=== PATIENT | female | born 1980 | race American Indian/Alaskan Native ===

== ENCOUNTER 2019-05-18 11:50 | Emergency (ER) | payer BC, MEDICAID ==
[2019-05-18] MEDS ORDERED: KEPPRA 1,000 MG/NS 0.75% 100ML 1,000 MG/100 ML BAG IV ONE (12:41)
--- NOTE | 2019-05-18 12:41 | Emergency Department Report ---
Blank Doc - Documentation Documentation: 38 y/o with history of seizures presents to ED S/P seizure yesterday at work a fter running out of mediations the last 3 days. C/o of chest pain and headache. Has neurologist and PCP This initial assessment/diagnostic orders/clinical plan/treatment(s) is/are subject to change based on patient's health status, clinical progression and re- assessment by fellow clinical providers in the ED. Further treatment and workup at subsequent clinical providers discretion. Patient/guardians urged not to elope from the ED as their condition may be serious if not clinically assessed and managed. Initial orders include: Plan Labs and keppra load
[2019-05-18 14:06] LABS: Basophils # (Auto) 0.1 K/mm3 (0.0-0.1); Basophils % (Auto) 0.7 % (0.0-1.8); Eosinophils # (Auto) 0.5 K/mm3 (0.0-0.4); Eosinophils % (Auto) 4.8 % (0.0-4.3); Hematocrit 37.7 % (30.3-42.9); Hemoglobin 12.2 gm/dl (10.1-14.3); Lymphocytes # (Auto) 3.2 K/mm3 (1.2-5.4); Lymphocytes % (Auto) 31.3 % (13.4-35.0); Mean Corpuscular HGB Conc 32 % (30-34); Mean Corpuscular Volume 78 fl (79-97); Monocytes # (Auto) 0.8 K/mm3 (0.0-0.8); Monocytes % (Auto) 7.9 % (0.0-7.3); Platelet Count 317 K/mm3 (140-440); Red Blood Count 4.83 M/mm3 (3.65-5.03); Red Cell Distribution Width 14.1 % (13.2-15.2)
[2019-05-18 14:12] LABS: Bilirubin,Urine Negative (Negative); Blood,Urine NEG (Negative); Color,Urine Yellow (Yellow); Protein,Urine <15 mg/dL mg/dL (Negative)
[2019-05-18 14:13] LABS: HCG Qualitative,Urine Negative (Negative)
[2019-05-18] MEDS ORDERED: LaMICtal PO ONE (14:14)
[2019-05-18 14:15] LABS: Mucus,Urine FEW /HPF
--- NOTE | 2019-05-18 14:37 | Emergency Department Report ---
HPI - General Chief Complaint: Seizure Time Seen by Provider: 05/18/19 12:38 - HPI HPI: 38-year-old female presents to the emergency department with complaint of having a seizure yesterday and having a continuous generalized headache since that time. Just complains of having some chest pain and shortness of breath that started earlier today. The chest pain is midsternal and does not radiate. She denies any fever, cough, back pain, diaphoresis. The patient takes Keppra 2000 mg twice daily, Motrin and Lamictal 100 mg twice daily, for her seizures but has been out of her medication the past 3 days. She has a neurologist, Dr. Barth. She has a primary care physician but has not seen them regarding her symptoms. Denies any tobacco or illicit drug use. No recent travel or sick contacts at home. ED Past Medical Hx - Past Medical History Previous Medical History?: Yes Hx Seizures: Yes Hx Psychiatric Treatment: Yes (anxiety) - Surgical History Past Surgical History?: Yes Additional Surgical History: breast reduction/ c section - Social History Smoking Status: Never Smoker Substance Use Type: None - Medications Home Medications: Home Medications Medication Instructions Recorded Confirmed Last Taken Type lamoTRIgine [LaMICtal] 100 mg PO BID #60 tab 05/18/19 Unknown Rx levETIRAcetam [Keppra TAB] 2,000 mg PO BID #60 tab 05/18/19 Unknown Rx traMADol [Ultram 50 MG tab] 50 mg PO Q6HR PRN #10 tablet 05/18/19 Unknown Rx ED Review of Systems ROS: Stated complaint: CHEST PAIN/SEIZURE YESTERDAY/PAIN Other details as noted in HPI Comment: All other systems reviewed and negative Constitutional: denies: chills, fever Eyes: denies: eye pain, vision change ENT: denies: ear pain, throat pain Respiratory: shortness of breath. denies: cough Cardiovascular: chest pain. denies: palpitations Gastrointestinal: denies: abdominal pain, vomiting Genitourinary: denies: dysuria, discharge Musculoskeletal: denies: back pain, arthralgia Skin: denies: rash, lesions Neurological: headache, other (seizure). denies: weakness, numbness, paresthesias Physical Exam - Physical Exam Vital Signs: Vital Signs 05/18/19 12:35 Temperature 98.3 F Pulse Rate 69 Respiratory 20 Rate Blood Pressure 128/74 O2 Sat by Pulse 100 Oximetry Physical Exam: GENERAL: The patient is well-developed well-nourished. HENT: Normocephalic. Atraumatic. Patient has moist mucous membranes. EYES: Extraocular motions are intact. Pupils equal reactive to light bilaterally. NECK: Supple. Trachea is midline. CHEST/LUNGS: Clear to auscultation. There is no respiratory distress noted. Chest pain is reproducible to palpation of the chest wall. No crepitus or deformity. HEART/CARDIOVASCULAR: Regular. There is no tachycardia. There is no murmur. ABDOMEN: Abdomen is soft, nontender. Patient has normal bowel sounds. There is no abdominal distention. SKIN: Skin is warm and dry. NEURO: The patient is awake, alert, and oriented. The patient is cooperative. The patient has no focal neurologic deficits. Normal speech. Cranial nerves II through XII grossly intact. MUSCULOSKELETAL: There is no tenderness or deformity. There is no evidence of acute injury. ED Course Vital Signs 05/18/19 12:35 Temperature 98.3 F Pulse Rate 69 Respiratory 20 Rate Blood Pressure 128/74 O2 Sat by Pulse 100 Oximetry ED Medical Decision Making - Lab Data Result diagrams: 05/18/19 13:35 05/18/19 13:35 - EKG Data -: EKG Interpreted by Me EKG shows normal: sinus rhythm, axis, intervals, QRS complexes (q waves to inferior leads), ST-T waves Rate: normal - EKG Data When compared to previous EKG there are: previous EKG unavailable Interpretation: other (Sinus, q waves to inferior leads. No STEMI) - Radiology Data Radiology results: report reviewed, image reviewed interpreted by me: Chest x-ray does not show any acute process. There are no pleural effusions, obvious pneumonia and there is no pneumothorax. CT head/brain wo con INDICATION / CLINICAL INFORMATION: 38 years Female; MAIN: headache OFF AND ON FOR SEVERAL WEEKS. TECHNIQUE: Routine CT head without contrast. All CT scans at this location are performed using CT dose reduction for ALARA by means of automated exposure control. COMPARISON: None. FINDINGS: BRAIN / INTRACRANIAL CONTENTS: No acute hemorrhage, mass effect, midline shift, hydrocephalus, or acute, large territorial infarct. No chronic infarct or focal atrophy. No significant white matter abnormality. CRANIOCERVICAL JUNCTION: No significant abnormality. ORBITS: No significant abnormality of visualized orbits. SINUSES / MASTOIDS: No significant abnormality the visualized paranasal sinuses or mastoid air cells. ADDITIONAL FINDINGS: Small areas of presumed gas are seen in the cavernous sinus regions-left greater than right. Minimal involvement seen in the infratemporal fossa on the left, as well as the left orbit. Would question IV placement on the left side. IMPRESSION: 1. No focal mass, hemorrhage, hydrocephalus, or acute, large territorial infarct. - Medical Decision Making This patient presents to the emergency with the complaint of having a seizure yesterday with a continuous headache since then. She also complains of some midsternal chest pain. The patient has been out of her seizure medication for the past 3 days which is most likely the reason for her current breakthrough seizure. Since being in the emergency department there has been no further seizure-like activity. She was loaded with some Keppra and lamotrigine. CT scan of the head did not show any bleed, shift, mass, ischemia, or any other acute process. On examination she does not have any focal, motor or sensory deficits in her cranial nerves are intact. She was given a dose of pain medication and upon reevaluation she is feeling greatly improved. She was seen ambulatory in the emergency department and both appears and feels stable. She has good follow-up with a neurologist. I checked with the patient multiple times and she is 100% positive that she is on 2 g of Keppra twice daily, despite the fact that it is a high dose of this medication. She has been given a refill of her seizure meds and a few pain pills for her residual mild headache. Regarding the chest pain, the patient has reproducible pain to palpation of the chest wall. EKG does not show any signs of ST elevation HI. She has a negative troponin and a negative d-dimer. She is low on the heart score and KAYLIN score. She will be given a referral for cardiology. She will return to the ER with any worsening of her symptoms or any acute distress. - Differential Diagnosis epilepsy, medication noncompliance, costochondritis, HI, PE Critical Care Time: No Critical care attestation.: If time is entered above; I have spent that time in minutes in the direct care of this critically ill patient, excluding procedure time. ED Disposition Clinical Impression: Seizure, Seizure secondary to subtherapeutic anticonvulsant medication, Atyp ical chest pain Disposition: DC-01 TO HOME OR SELFCARE Is pt being admited?: No Condition: Stable Instructions: Chest Pain (ED), Costochondritis (ED), Epilepsy (ED) Additional Instructions: Please follow-up with your primary care physician and neurologist. Return to the emergency Department with any worsening of your symptoms or any acute distress. Your chest pain appears to be more musculoskeletal than cardiac, however I am giving a referral for a local bowling ball mold assembler in case she would like to follow up regarding the chest pains. Take your seizure medications as p rescribed. Return to the emergency Department with any worsening of your symptoms or any acute distress. You have been prescribed a medication that is sedating and therefore should not be taken prior to driving, working, and responsible for children and in no way should be mixed with alcohol of any quantity. Prescriptions: levETIRAcetam [Keppra TAB] 2,000 mg PO BID #60 tab lamoTRIgine [LaMICtal] 100 mg PO BID #60 tab traMADol [Ultram 50 MG tab] 50 mg PO Q6HR PRN #10 tablet PRN Reason: Pain Referrals: PRIMARY CAREMD [Primary Care Provider] - 2-3 Days OLU LINDSAY MD [Staff Physician] - 2-3 Days Neurologist, Your [Other] - 2-3 Days Time of Disposition: 17:12
[2019-05-18] MEDS ORDERED: NACL 0.9% 1000 ML 1,000 ML IV ONE (14:38)
[2019-05-18] MEDS ORDERED: MORPHINE IV ONE (14:38)
--- NOTE | 2019-05-18 14:58 | XRay Report ---
CHEST 2 VIEWS INDICATION: Chest pain for one day. COMPARISON: None FINDINGS: Support devices: None. Heart: Within normal limits. Lungs/pleura: No acute air space or interstitial disease. No pneumothorax. Additional findings: None. IMPRESSION: Normal chest x-ray. Signer Name: Vikas Tijerina Jr, MD Signed: 05/18/2019 2:53 PM Workstation Name: [id number]
[2019-05-18 15:54] VITALS: BP 138/73
[2019-05-18 16:02] LABS: Alanine Aminotransferase 14 units/L (7-56); Albumin 3.8 g/dL (3.9-5); BUN/Creatinine Ratio 11; Blood Urea Nitrogen 9 mg/dL (7-17); Calcium 9.1 mg/dL (8.4-10.2); Hemolysis Index 51
--- NOTE | 2019-05-18 16:18 | Cat Scan Report ---
CT head/brain wo con INDICATION / CLINICAL INFORMATION: 38 years Female; MAIN: headache OFF AND ON FOR SEVERAL WEEKS. TECHNIQUE: Routine CT head without contrast. All CT scans at this location are performed using CT dos e reduction for ALARA by means of automated exposure control. COMPARISON: None. FINDINGS: BRAIN / INTRACRANIAL CONTENTS: No acute hemorrhage, mass effect, midline shift, hydrocephalus, or acu te, large territorial infarct. No chronic infarct or focal atrophy. No significant white matter abnor mality. CRANIOCERVICAL JUNCTION: No significant abnormality. ORBITS: No significant abnormality of visualized orbits. SINUSES / MASTOIDS: No significant abnormality the visualized paranasal sinuses or mastoid air cells. ADDITIONAL FINDINGS: Small areas of presumed gas are seen in the cavernous sinus regions-left greater than right. Minimal involvement seen in the infratemporal fossa on the left, as well as the left orb it. Would question IV placement on the left side. IMPRESSION: 1. No focal mass, hemorrhage, hydrocephalus, or acute, large territorial infarct. Signer Name: Yayo Aviles MD, III Signed: 05/18/2019 4:13 PM Workstation Name: [id number]
== END 2019-05-18 17:28 | disposition home or self-care (01) ==
LOC: ED 11:50
DX: R56.9 Unspecified convulsions (principal); R07.89 Other chest pain; F41.9 Anxiety disorder, unspecified
CPT/HCPCS: 36415; 70450; 71046; 80053; 81001; 81025; 84484; 85025; 85379; 93005; 93010; 96374; 96375; 99284; J1953; J2270; J7030; 80320; G0480

== ENCOUNTER 2019-07-21 11:34 | Emergency (ER) | payer SELFPAY ==
[2019-07-21] MEDS ORDERED: dexAMETHasone 4 MG/ML VIAL PO ONE (15:19)
[2019-07-21] MEDS ORDERED: PENICILLIN G BENZATHINE 1.2 MILLION UNIT/2 ML INJ IM STA (15:19)
--- NOTE | 2019-07-21 15:53 | Emergency Department Report ---
ED General Adult HPI - General Chief complaint: Upper Respiratory Infection Stated complaint: CP/COUGH/POSS STREP THROAT Time Seen by Provider: 07/21/19 14:54 Source: patient Mode of arrival: Ambulatory Limitations: No Limitations - Related Data Previous Rx's Medication Instructions Recorded Last Taken Type lamoTRIgine [LaMICtal] 100 mg PO BID #60 tab 05/18/19 Unknown Rx levETIRAcetam [Keppra TAB] 2,000 mg PO BID #60 tab 05/18/19 Unknown Rx traMADoL [Ultram 50 MG tab] 50 mg PO Q6HR PRN #10 tablet 05/18/19 Unknown Rx Chlorhexidine Mouthwash [Peridex] 15 ml MM BID #480 bottle 07/21/19 Unknown Rx Allergies Allergy/AdvReac Type Severity Reaction Status Date / Time No Known Allergies Allergy Verified 01/02/16 15:06 ED Review of Systems ROS: Stated complaint: CP/COUGH/POSS STREP THROAT Other details as noted in HPI Comment: All other systems reviewed and negative Constitutional: no symptoms reported Respiratory: no symptoms reported ED Past Medical Hx - Past Medical History Hx Seizures: Yes Hx Psychiatric Treatment: Yes (anxiety) - Surgical History Additional Surgical History: breast reduction/ c section - Social History Smoking Status: Never Smoker - Medications Home Medications: Home Medications Medication Instructions Recorded Confirmed Last Taken Type lamoTRIgine [LaMICtal] 100 mg PO BID #60 tab 05/18/19 Unknown Rx levETIRAcetam [Keppra TAB] 2,000 mg PO BID #60 tab 05/18/19 Unknown Rx traMADoL [Ultram 50 MG tab] 50 mg PO Q6HR PRN #10 tablet 05/18/19 Unknown Rx Chlorhexidine Mouthwash [Peridex] 15 ml MM BID #480 bottle 07/21/19 Unknown Rx ED Physical Exam - General Limitations: No Limitations General appearance: alert, in no apparent distress - Head Head exam: Present: atraumatic, normocephalic - Eye Eye exam: Present: normal appearance, PERRL, EOMI Pupils: Present: normal accommodation - ENT ENT exam: Present: normal exam, mucous membranes moist, other (findings were erythematous with some swelling scant exudate.) - Neck Neck exam: Present: normal inspection, tenderness, lymphadenopathy. Absent: meningismus - Respiratory Respiratory exam: Present: normal lung sounds bilaterally. Absent: respiratory distress, rales, chest wall tenderness, accessory muscle use - Cardiovascular Cardiovascular Exam: Present: regular rate, normal rhythm. Absent: systolic murmur, diastolic murmur, rubs, gallop - GI/Abdominal GI/Abdominal exam: Present: soft, normal bowel sounds - Extremities Exam Extremities exam: Present: normal inspection - Back Exam Back exam: Present: normal inspection - Neurological Exam Neurological exam: Present: alert, oriented X3 - Psychiatric Psychiatric exam: Present: normal affect, normal mood - Skin Skin exam: Present: warm, dry, intact, normal color. Absent: rash ED Course Vital Signs 07/21/19 11:38 Temperature 98.5 F Pulse Rate 108 H Respiratory 16 Rate Blood Pressure 152/82 O2 Sat by Pulse 96 Oximetry ED Medical Decision Making - Medical Decision Making No history of immunocompromise. Nontoxic appearance. Patient euvolemic with no trismus. No airway compromise. Able to tolerate PO. Given History and Exam I have low suspicion for this presentation being caused by OPERATOR CAVITY PUMP, RPA, Ludwigs, Epiglottitis or Bacterial Tracheitis, EBV, acute HIV, . Patient has been a very close contact with strep throat and the symptoms do results of that be included in the differential diagnosis we'll cover her for these reasons. Rx: Conservative care Disposition: Discharge home with prompt outpatient PCP follow up; return precautions discussed. Critical care attestation.: If time is entered above; I have spent that time in minutes in the direct care of this critically ill patient, excluding procedure time. ED Disposition Clinical Impression: Pharyngitis Disposition: DC-01 TO HOME OR SELFCARE Is pt being admited?: No Does the pt Need Aspirin: No Condition: Stable Instructions: Pharyngitis (ED) Prescriptions: Chlorhexidine Mouthwash [Peridex] 15 ml MM BID #480 bottle Referrals: AARON MUNOZ MD [Staff Physician] - 3-5 Days
[2019-07-21 16:37] VITALS: BP 144/78
== END 2019-07-21 16:35 | disposition home or self-care (01) ==
LOC: ED 11:34
DX: J02.9 Acute pharyngitis, unspecified (principal); F41.9 Anxiety disorder, unspecified; Z79.899 Other long term (current) drug therapy
CPT/HCPCS: 96372; 99282; J0561; J1100

== ENCOUNTER 2021-01-09 12:10 | Emergency (ER) | payer BC ==
[2021-01-09] MEDS ORDERED: SODIUM CHLORIDE 0.9% 1000 ML 1,000 ML IV ONE (14:51)
[2021-01-09] MEDS ORDERED: lamoTRIgine 100 MG TAB PO ONE (14:52)
[2021-01-09] MEDS ORDERED: levETIRAcetam 500 MG TAB PO ONE (14:52)
--- NOTE | 2021-01-09 14:56 | Emergency Department Report ---
HPI - General Chief Complaint: Seizure Time Seen by Provider: 01/09/21 14:37 - HPI HPI: This is a 40-year-old -[place] female presents to the emergency department via EMS from home with complaint of a seizure prior to presentation. Patient has a history of epilepsy for which she takes Vimpat 100 mg twice daily, lamotrigine 100 mg twice daily and Keppra 2 g twice daily. Patient says that she did not yet take her morning doses of her medications. She was at home when the seizure began. She does not know how long it lasted and says that she woke up on the floor having urinated on herself. She thinks that she did hit her head and has a right-sided headache. Patient has a primary care physician for follow-up. She also follows up with a Dr. Barth for neurology. She denies any tobacco or illicit drug use. No recent travel or sick contacts at home. She denies any fever, vision change, slurred speech, numbness or paresthesias, chest pain, roberto rtness of breath. The patient has not taken, no received anything, for symptoms prior to presentation today. Her headache is currently a 8 out of 10 in intensity. No known aggravating or alleviating factors. ED Past Medical Hx - Past Medical History Previous Medical History?: Yes Hx Seizures: Yes Hx Psychiatric Treatment: Yes (anxiety) - Surgical History Additional Surgical History: breast reduction/ c section - Social History Smoking Status: Current Some Day Smoker Substance Use Type: Marijuana - Medications Home Medications: Home Medications Medication Instructions Recorded Confirmed Last Taken Type Lacosamide [Vimpat] 100 mg PO BID 30 Days #60 01/08/20 01/09/21 01/08/21 Rx lamoTRIgine [LaMICtal] 100 mg PO BID #60 tablet 01/08/20 01/09/21 01/08/21 Rx levETIRAcetam [Keppra TAB] 2,000 mg PO BID #60 tab 01/08/20 01/09/21 01/08/21 Rx Famotidine [Pepcid] 20 mg PO QDAY PRN 01/09/21 01/09/21 3 Months Ago History ~10/09/20 ED Review of Systems ROS: Stated complaint: SEIZURE Other details as noted in HPI Comment: All other systems reviewed and negative Constitutional: denies: chills, fever Eyes: denies: eye pain, vision change ENT: denies: ear pain, throat pain Respiratory: denies: cough, shortness of breath Cardiovascular: denies: chest pain, palpitations Gastrointestinal: denies: abdominal pain, vomiting Genitourinary: denies: dysuria, discharge Musculoskeletal: denies: back pain, arthralgia Skin: denies: rash, lesions Neurological: headache, other (seizure). denies: weakness, numbness, paresthesias Physical Exam - Physical Exam Vital Signs: Vital Signs 01/09/21 01/09/21 01/09/21 13:44 13:46 14:00 Temperature 97.9 F Pulse Rate 74 Respiratory 18 Rate Blood Pressure 147/85 O2 Sat by Pulse 100 100 99 Oximetry 01/09/21 01/09/21 14:16 14:30 Temperature Pulse Rate 75 77 Respiratory 14 16 Rate Blood Pressure 156/87 135/72 O2 Sat by Pulse 100 100 Oximetry Physical Exam: GENERAL: The patient is well-developed well-nourished. HENT: Normocephalic. Atraumatic. Patient has moist mucous membranes. EYES: Extraocular motions are intact. Pupils equal reactive to light bilaterally. No nystagmus. NECK: Supple. Trachea is midline. CHEST/LUNGS: Clear to auscultation. There is no respiratory distress noted. HEART/CARDIOVASCULAR: Regular. There is no tachycardia. There is no murmur. ABDOMEN: Abdomen is soft, nontender. Patient has normal bowel sounds. Morbidly obese habitus. SKIN: Skin is warm and dry. NEURO: The patient is awake, alert, and oriented. The patient is cooperative. The patient has no focal neurologic deficits. Normal speech. Cranial nerves II through XII grossly intact. No pronator drift or dysmetria. No facial asymmetry. MUSCULOSKELETAL: There is no tenderness or deformity. There is no limitation range of motion. ED Course Vital Signs 01/09/21 01/09/21 01/09/21 13:44 13:46 14:00 Temperature 97.9 F Pulse Rate 74 Respiratory 18 Rate Blood Pressure 147/85 O2 Sat by Pulse 100 100 99 Oximetry 01/09/21 01/09/21 14:16 14:30 Temperature Pulse Rate 75 77 Respiratory 14 16 Rate Blood Pressure 156/87 135/72 O2 Sat by Pulse 100 100 Oximetry ED Medical Decision Making - Lab Data Result diagrams: 01/09/21 14:58 01/09/21 14:58 Lab Results 01/09/21 01/09/21 01/09/21 Range/Units 14:58 14:58 14:58 WBC 8.6 (4.5-11.0) K/mm3 RBC 4.71 (3.65-5.03) M/mm3 Hgb 12.1 (10.1-14.3) gm/dl Hct 36.2 (30.3-42.9) % MCV 77 L (79-97) fl MCH 26 L (28-32) pg MCHC 33 (30-34) % RDW 14.5 (13.2-15.2) % Plt Count 288 (140-440) K/mm3 Lymph % (Auto) 28.3 (13.4-35.0) % [place] % (Auto) 12.4 H (0.0-7.3) % Eos % (Auto) 3.5 (0.0-4.3) % Baso % (Auto) 0.8 (0.0-1.8) % Lymph # (Auto) 2.4 (1.2-5.4) K/mm3 [place] # (Auto) 1.1 H (0.0-0.8) K/mm3 Eos # (Auto) 0.3 (0.0-0.4) K/mm3 Baso # (Auto) 0.1 (0.0-0.1) K/mm3 Seg Neutrophils % 55.0 (40.0-70.0) % Seg Neutrophils # 4.8 (1.8-7.7) K/mm3 Sodium 138 (137-145) mmol/L Potassium 4.7 (3.6-5.0) mmol/L Chloride 102.6 (98-107) mmol/L Carbon Dioxide 28 (22-30) mmol/L Anion Gap 12 mmol/L BUN 8 (7-17) mg/dL Creatinine 0.8 (0.6-1.2) mg/dL Estimated GFR > 60 ml/min BUN/Creatinine Ratio 10 % Glucose 85 (65-100) mg/dL Calcium 8.7 (8.4-10.2) mg/dL Total Bilirubin 0.50 (0.1-1.2) mg/dL AST 14 (5-40) units/L ALT 10 (7-56) units/L Alkaline Phosphatase 60 (35-129) units/L Total Creatine Kinase 164 H (30-135) units/L Total Protein 7.0 (6.3-8.2) g/dL Albumin 3.8 L (3.9-5) g/dL Albumin/Globulin Ratio 1.2 % TSH (0.270-4.200) mlU/mL Urine Color (Yellow) Urine Turbidity (Clear) Urine pH (5.0-7.0) Ur Specific [place]ner (1.003-1.030) Urine Protein (Negative) mg/dL Urine Glucose (UA) (Negative) mg/dL Urine Ketones (Negative) mg/dL Urine Blood (Negative) Urine Nitrite (Negative) Urine Bilirubin (Negative) Urine Urobilinogen (<2.0) mg/dL Ur Leukocyte Esterase (Negative) Urine WBC (Auto) (0.0-6.0) /HPF Urine RBC (Auto) (0.0-6.0) /HPF U Epithel Cells (Auto) (0-13.0) /HPF Urine Bacteria (Auto) (Negative) /HPF Urine Mucus /HPF Urine Opiates Screen Urine Methadone Screen Ur Barbiturates Screen Ur Phencyclidine Scrn Ur Amphetamines Screen U Benzodiazepines Scrn Urine Cocaine Screen U Marijuana (THC) Screen Drugs of Abuse Note Plasma/Serum Alcohol < 0.01 (0-0.07) % 01/09/21 01/09/21 01/09/21 Range/Units 14:58 15:17 15:17 WBC (4.5-11.0) K/mm3 RBC (3.65-5.03) M/mm3 Hgb (10.1-14.3) gm/dl Hct (30.3-42.9) % MCV (79-97) fl MCH (28-32) pg MCHC (30-34) % RDW (13.2-15.2) % Plt Count (140-440) K/mm3 Lymph % (Auto) (13.4-35.0) % [place] % (Auto) (0.0-7.3) % Eos % (Auto) (0.0-4.3) % Baso % (Auto) (0.0-1.8) % Lymph # (Auto) (1.2-5.4) K/mm3 [place] # (Auto) (0.0-0.8) K/mm3 Eos # (Auto) (0.0-0.4) K/mm3 Baso # (Auto) (0.0-0.1) K/mm3 Seg Neutrophils % (40.0-70.0) % Seg Neutrophils # (1.8-7.7) K/mm3 Sodium (137-145) mmol/L Potassium (3.6-5.0) mmol/L Chloride (98-107) mmol/L Carbon Dioxide (22-30) mmol/L Anion Gap mmol/L BUN (7-17) mg/dL Creatinine (0.6-1.2) mg/dL Estimated GFR ml/min BUN/Creatinine Ratio % Glucose (65-100) mg/dL Calcium (8.4-10.2) mg/dL Total Bilirubin (0.1-1.2) mg/dL AST (5-40) units/L ALT (7-56) units/L Alkaline Phosphatase (35-129) units/L Total Creatine Kinase (30-135) units/L Total Protein (6.3-8.2) g/dL Albumin (3.9-5) g/dL Albumin/Globulin Ratio % TSH 1.960 (0.270-4.200) mlU/mL Urine Color Yellow (Yellow) Urine Turbidity Clear (Clear) Urine pH 6.0 (5.0-7.0) Ur Specific [place] 1.012 (1.003-1.030) Urine Protein <15 mg/dl (Negative) mg/dL Urine Glucose (UA) Neg (Negative) mg/dL Urine Ketones Neg (Negative) mg/dL Urine Blood Neg (Negative) Urine Nitrite Neg (Negative) Urine Bilirubin Neg (Negative) Urine Urobilinogen < 2.0 (<2.0) mg/dL Ur Leukocyte Esterase Neg (Negative) Urine WBC (Auto) < 1.0 (0.0-6.0) /HPF Urine RBC (Auto) 1.0 (0.0-6.0) /HPF U Epithel Cells (Auto) 2.0 (0-13.0) /HPF Urine Bacteria (Auto) 1+ (Negative) /HPF Urine Mucus Few /HPF Urine Opiates Screen Negative Urine Methadone Screen Negative Ur Barbiturates Screen Negative Ur Phencyclidine Scrn Negative Ur Amphetamines Screen Negative U Benzodiazepines Scrn Negative Urine Cocaine Screen Negative U Marijuana (THC) Screen Positive Drugs of Abuse Note Disclamer Plasma/Serum Alcohol (0-0.07) % - EKG Data -: EKG Interpreted by Me EKG shows normal: sinus rhythm, axis, intervals, QRS complexes, ST-T waves Rate: normal - EKG Data When compared to previous EKG there are: previous EKG unavailable Interpretation: normal EKG - Radiology Data Radiology results: report reviewed CT head/brain wo con INDICATION: Seizure, headache. TECHNIQUE: All CT scans at this location are performed using CT dose reduction for ALARA by means of aut omated exposure control. COMPARISON: Head CT on 05/18/2019 FINDINGS: There is no evidence of hemorrhage, hydrocephalus, brain edema, or mass effect/mass lesion. There is overall normal brain formation and brain volume for the patient's age. Ventricular and cisternal/sulcal size is normal for age. The included paranasal sinuses and mastoid air cells are clear. The orbits appear unremarkable. IMPRES JOSE ALEJANDRO: 1. No acute intracranial abnormality. - Medical Decision Making This patient presents to the emergency department after having either a seizure or syncopal episode just prior to presentation. The patient does have a history of epilepsy and has been compliant with her medications other than her morning dose today. On examination the patient is awake, alert, oriented. She does not have any focal, motor or sensory deficits and her cranial nerves are intact. Since the patient did have a seizure and complains of right-sided headache, a CT scan of the head without contrast was completed that did not show any large vessel occlusion, hemorrhage, hydrocephalus, edema, mass, or any other acute process. She was given a dose of her lamotrigine, Vimpat, Keppra, and was given a dose of IV analgesia for headache. Labs have been mostly unremarkable occluding CBC, metabolic panel, thyroid function, CK level, and UDS only positive for marijuana. She has been reevaluated multiple times over multiple hours and there has been no return of any seizure-like activity, syncopal episodes, or any neurological deficits. The patient has good outpatient follow-up with both primary care and neurology. For all these reason she appears safe for discharge home at this time. She understands that she cannot drive. She understands to stay away from alcohol, illicit drugs, excessive caffeine. She will return to the closest emergency department with any further seizure-like activity, worsening of her symptoms, or with any acute distress. Critical Care Time: No Critical care attestation.: If time is entered above; I have spent that time in minutes in the direct care of this critically ill patient, excluding procedure time. ED Disposition Clinical Impression: Seizure Hypertension Qualifiers: Hypertension type: essential hypertension Qualified Code(s): I10 - Essential (primary) hypertension Disposition: TO HOME OR SELFCARE Is pt being admited?: No Condition: Stable Instructions: Seizure, Adult, Hypertension, Adult, Hypertension (ED) Additional Instructions: Please follow-up with your primary care physician and neurologist in the next few days. Take all of your medications as prescribed. Avoid any alcohol use, illicit drug use, excessive caffeine use. Please try and get 8 hours of un-interrupted sleep at night. Because of your seizures, you are not allowed to drive or operate any vehicles for at least 6 months or until cleared by your neurologist. Return to the emergency department with any worsening of your symptoms, new or concerning symptoms not addressed during this current emergency department visit, or with any acute distress. Referrals: PRIMARY MD VINCENZO [Primary Care Provider] - 2-3 Days Time of Disposition: 17:58
[2021-01-09] MEDS ORDERED: LACOSAMIDE 100 MG in SODIUM CHLORIDE 0.9% 100 ML IV ONE (15:00)
[2021-01-09] MEDS ORDERED: MORPHINE 4 MG/1 ML INJ IV ONE ×2 (15:08→17:49)
[2021-01-09 15:10] LABS: Basophils # (Auto) 0.1 K/mm3 (0.0-0.1); Basophils % (Auto) 0.8 % (0.0-1.8); Eosinophils # (Auto) 0.3 K/mm3 (0.0-0.4); Eosinophils % (Auto) 3.5 % (0.0-4.3); Hematocrit 36.2 % (30.3-42.9); Hemoglobin 12.1 gm/dl (10.1-14.3); Lymphocytes # (Auto) 2.4 K/mm3 (1.2-5.4); Lymphocytes % (Auto) 28.3 % (13.4-35.0); Mean Corpuscular HGB Conc 33 % (30-34); Mean Corpuscular Volume 77 fl (79-97); Monocytes # (Auto) 1.1 K/mm3 (0.0-0.8); Monocytes % (Auto) 12.4 % (0.0-7.3); Platelet Count 288 K/mm3 (140-440); Red Blood Count 4.71 M/mm3 (3.65-5.03); Red Cell Distribution Width 14.5 % (13.2-15.2)
[2021-01-09 15:26] LABS: Alanine Aminotransferase 10 units/L (7-56); Albumin 3.8 g/dL (3.9-5); BUN/Creatinine Ratio 10; Blood Urea Nitrogen 8 mg/dL (7-17); Calcium 8.7 mg/dL (8.4-10.2); Hemolysis Index 24
[2021-01-09 16:00] LABS: Amphetamine Screen,Urine Negative; Bacteria,Urine 1+ /HPF (Negative); Benzodiazepines Screen,Urine Negative; Bilirubin,Urine NEG (Negative); Blood,Urine NEG (Negative); Cocaine Screen,Urine Negative; Color,Urine Yellow (Yellow); Methadone Screen,Urine Negative; Mucus,Urine FEW /HPF; Opiate Screen,Urine Negative; Protein,Urine <15 mg/dL mg/dL (Negative); Urobilinogen,Urine < 2.0 mg/dL (<2.0); WBC,Urine < 1.0 /HPF (0.0-6.0)
[2021-01-09 16:10] LABS: Cannabinoid Screen,Urine Positive
--- NOTE | 2021-01-09 17:14 | Cat Scan Report ---
CT head/brain wo con INDICATION: Seizure, headache. TECHNIQUE: All CT scans at this location are performed using CT dose reduction for ALARA by means of automated e xposure control. COMPARISON: Head CT on 05/18/2019 FINDINGS: There is no evidence of hemorrhage, hydrocephalus, brain edema, or mass effect/mass lesion. There is overall normal brain formation and brain volume for the patient's age. Ventricular and cisternal/sulc al size is normal for age. The included paranasal sinuses and mastoid air cells are clear. The orbits appear unremarkable. IMPRESSION: 1. No acute intracranial abnormality. Signer Name: Chau Pandey MD Signed: 01/09/2021 5:10 PM Workstation Name: [id number]
[2021-01-09 18:38] VITALS: BP 155/85
--- NOTE | 2021-01-15 09:38 | Electrocardiograph Report ---
[facility] Test Date: 2021-01-09 Test Time: 15:54:27 Pat Name: DREAD AVILEZ Department: ED Room: Gender: F Chart Snatcher: VISHAL : 1980 Requested By: MELITON RICHMOND Order Number: [id number] Reading MD: Kamlesh Blair Measurements Intervals [place] Rate: 68 P: 50 [place]: 166 QRS: 38 QRSD: 88 T: 31 QT: 389 QTc: 413 Interpretive Statements Sinus rhythm No previous ECG available for comparison Electronically Signed On 01-15-2021 9:37:45 EDT by Kamlesh Blair
== END 2021-01-09 18:38 | disposition home or self-care (01) ==
LOC: ED 12:10
DX: R56.9 Unspecified convulsions (principal); I10 Essential (primary) hypertension; F41.9 Anxiety disorder, unspecified; F17.200 Nicotine dependence, unspecified, uncomplicated; F12.10 Cannabis abuse, uncomplicated; Z98.890 Other specified postprocedural states; Z79.899 Other long term (current) drug therapy
CPT/HCPCS: 36415; 70450; 80053; 80307; 81001; 82550; 84443; 85025; 96365; 96375; 96376; 99285; C9254; J2270; J7030; 80320; 93005; G0480

== ENCOUNTER 2021-01-15 15:55 | Emergency (ER) | payer BC ==
--- NOTE | 2021-01-15 16:10 | Event Note ---
ED Screening Note ED Screening Note: here Tuesday for sz she reports she is taking her meds and that she has seen her pcp and neuro MD since ER and they have changed nothing she comes in today with a headache, dizziness and reports her bp is high ambulatory no focal deficit no cp no sob pmh sz obese bp mildly inc in triage This initial assessment/diagnostic orders/clinical plan/treatment(s) is/are subject to change based on patients health status, clinical progression and re- assessment by fellow clinical providers in the ED. Further treatment and workup at subsequent clinical providers discretion. Patient/guardian urged not to elope from the ED as their condition may be serious if not clinically assessed and managed. Initial orders include: labs ua ekg
[2021-01-15 16:47] LABS: Basophils # (Auto) 0.1 K/mm3 (0.0-0.1); Basophils % (Auto) 0.6 % (0.0-1.8); Eosinophils # (Auto) 0.2 K/mm3 (0.0-0.4); Eosinophils % (Auto) 1.6 % (0.0-4.3); Hematocrit 38.6 % (30.3-42.9); Hemoglobin 12.2 gm/dl (10.1-14.3); Lymphocytes # (Auto) 3.9 K/mm3 (1.2-5.4); Lymphocytes % (Auto) 40.2 % (13.4-35.0); Mean Corpuscular HGB Conc 32 % (30-34); Mean Corpuscular Volume 77 fl (79-97); Monocytes # (Auto) 0.9 K/mm3 (0.0-0.8); Monocytes % (Auto) 9.7 % (0.0-7.3); Platelet Count 355 K/mm3 (140-440); Red Blood Count 4.99 M/mm3 (3.65-5.03); Red Cell Distribution Width 14.5 % (13.2-15.2)
[2021-01-15 16:53] LABS: Creatine Kinase MB 1.2 ng/mL (0.0-4.0)
[2021-01-15 16:55] LABS: Alanine Aminotransferase 11 units/L (7-56); Albumin 3.9 g/dL (3.9-5); Blood Urea Nitrogen 9 mg/dL (7-17); Calcium 9.4 mg/dL (8.4-10.2); Hemolysis Index 3
[2021-01-15 17:01] LABS: BUN/Creatinine Ratio 13
--- NOTE | 2021-01-15 17:35 | Emergency Department Report ---
- General Chief complaint: Dizziness Stated complaint: DIZZY Time Seen by Provider: 01/15/21 16:08 Source: patient Mode of arrival: Stretcher Limitations: No Limitations - History of Present Illness Initial comments: 40-year-old female with history of epilepsy on multiple antiepileptics presents complaining of persistent and worsening headache since January 09. The patient was seen in our emergency room on January 09 for breakthrough seizure. At that time she was evaluated with a full set of labs and CT of the head which were normal. She was discharged home and encouraged to follow-up with her doctor. Of note, my interaction with the patient began after she was placed in a room and the nurse came to get me saying that the patient was having an episode where she was drooling and was not responding to him and he was concerned that she might be having a seizure. When I entered the room, the patient was slightly somnolent but able to answer my questions. She stated that she started progressive headache since her last seizure on January 09. She describes the headache as pressure-like and centered in the back of her head as well as the bilateral temples. In addition she says she has felt dizzy as in lightheaded. She denies room spinning dizziness. She denies fever/chills, vision change, neck pain/stiffness, chest pain, shortness of breath, abdominal pain, nausea/ vomiting, focal weakness, sensory changes, or any other associated symptoms. However, details of the HPI may be limited due to the patient's possible post ictal state given that she was somnolent and slightly confused during the interview and was not that way when she first arrived. - Related Data Home Medications Medication Instructions Recorded Confirmed Last Taken Famotidine [Pepcid] 20 mg PO QDAY PRN 01/09/21 01/09/21 3 Months Ago ~10/09/20 Previous Rx's Medication Instructions Recorded Last Taken Type lamoTRIgine [LaMICtal] 100 mg PO BID #60 tablet 01/08/20 01/08/21 Rx levETIRAcetam [Keppra TAB] 2,000 mg PO BID #60 tab 01/08/20 01/08/21 Rx Lacosamide [Vimpat] 150 mg PO BID #60 tablet 01/15/21 Unknown Rx Allergies Allergy/AdvReac Type Severity Reaction Status Date / Time No Known Allergies Allergy Verified 01/09/21 14:39 ED Review of Systems ROS: Stated complaint: DIZZY Other details as noted in HPI Constitutional: denies: chills, fever Eyes: denies: eye pain, vision change ENT: denies: throat pain, congestion Respiratory: denies: cough, shortness of breath Cardiovascular: denies: chest pain, palpitations Gastrointestinal: denies: abdominal pain, nausea, vomiting Genitourinary: denies: dysuria, frequency Musculoskeletal: denies: back pain, myalgia Skin: denies: rash Neurological: headache. denies: weakness, numbness, vertigo ED Past Medical Hx - Past Medical History Previous Medical History?: Yes Hx Seizures: Yes Hx Psychiatric Treatment: Yes (anxiety) - Surgical History Past Surgical History?: Yes Additional Surgical History: breast reduction/ c section - Social History Smoking Status: Current Some Day Smoker Substance Use Type: Marijuana - Medications Home Medications: Home Medications Medication Instructions Recorded Confirmed Last Taken Type lamoTRIgine [LaMICtal] 100 mg PO BID #60 tablet 01/08/20 01/09/21 01/08/21 Rx levETIRAcetam [Keppra TAB] 2,000 mg PO BID #60 tab 01/08/20 01/09/21 01/08/21 Rx Famotidine [Pepcid] 20 mg PO QDAY PRN 01/09/21 01/09/21 3 Months Ago History ~10/09/20 Lacosamide [Vimpat] 150 mg PO BID #60 tablet 01/15/21 Unknown Rx ED Physical Exam - General Limitations: No Limitations - Head Head exam: Present: atraumatic - Eye Eye exam: Present: PERRL, EOMI Pupils: Present: normal accommodation - ENT ENT exam: Present: normal exam, mucous membranes moist - Neck Neck exam: Present: normal inspection, full ROM. Absent: tenderness, meningismus - Respiratory Respiratory exam: Present: normal lung sounds bilaterally. Absent: respiratory distress, wheezes, rales - Cardiovascular Cardiovascular Exam: Present: regular rate, normal rhythm - GI/Abdominal GI/Abdominal exam: Present: soft. Absent: distended, tenderness - Extremities Exam Extremities exam: Present: normal inspection. Absent: tenderness - Back Exam Back exam: Present: normal inspection, full ROM, other (No mid-spinal tenderness of the C/T/L spine). Absent: tenderness - Assessment Assessment Interval: Baseline - Level of Consciousness 1a. Level of Consciousness: alert/keenly responsive - LOC Questions 1b. LOC Questions: answers both correctly - LOC Command 1c. LOC Commands: performs tasks correctly - Best Gaze 2. Best Gaze: normal - Visual 3. Visual: no visual loss - Facial Palsy 4. Facial Palsy: partial paralysis - Motor Arm 5a. Motor Arm Left: no drift 5b. Motor Arm Right: drift - Motor Leg 6a. Motor Leg Left: no drift 6b. Motor Leg Right: drift - Limb Ataxia 7. Limb Ataxia: absent - Sensory 8. Sensory: mild/moderate sensory loss - Best Language 9. Best Language: no aphasia - Dysarthria 10. Dysarthria: normal - Extinction and Inattention 11. Extinction/Inattention: no abnormality - Scoring Total Score: 5 Stroke Severity: Moderate Stroke ED Course Vital Signs 01/15/21 01/15/21 01/15/21 16:06 17:06 17:56 Temperature 98.2 F Pulse Rate 80 94 H Respiratory 20 19 20 Rate Blood Pressure 149/97 Blood Pressure 160/106 [Left] O2 Sat by Pulse 98 99 Oximetry 01/15/21 18:33 Temperature Pulse Rate 84 Respiratory 18 Rate Blood Pressure Blood Pressure 132/69 [Left] O2 Sat by Pulse 100 Oximetry ED Medical Decision Making - Lab Data Result diagrams: 01/15/21 17:30 01/15/21 16:15 - EKG Data -: EKG Interpreted by [place] - EKG Data 01/15/21 18:41 Normal sinus rhythm. Normal axis. Normal intervals. No ectopy. No significant ST segment or T wave abnormalities. - Radiology Data NONENHANCED CT SCAN OF THE BRAIN: INDICATION: CODE STROKE [id number] RT SIDE WEAKNESS,. TECHNIQUE: Routine CT head without contrast. Sagittal and coronal reformatted images were obtained. All CT scans at this location are performed using CT dose reduction for ALARA by means of automated exposure control. COMPARISON: None. FINDINGS: BRAIN / INTRACRANIAL CONTENTS: Hemorrhage: No intracranial hemorrhage; no subarachnoid hemorrhage Stroke mimics: No subdural or epidural hematoma or space taking lesion Acute/subacute territorial infarction: Alvarez-white matter interface: No blurring; normal Insular cortex: Normal Basal ganglia: Normal Wedge shaped parenchymal low density area: Not present Cortical sulci: Not effaced Lacunar infarctions: No acute/subacute lacunae Vasculopathy: Dense middle cerebral artery sign: Not present Internal carotid artery terminus: Normal Basilar artery:Normal Middle cerebral artery branches in the sylvian fissure (Dot sign): Normal Calcified embolus: Not present ASPECT score: 10 Chronic lesions: None White matter: Periventricular a nd deep hemispheric white matter are normal Craniocervical junction:No significant abnormality Orbits: No significant abnormality Paranasal sinuses/mastoids:No significant abnormality Additional findings: None IMPRESSION: No intracerebral hemorrhage or stroke mimics; no CT findings to suggest acute/subacute territorial ischemia This exam was performed as part of a code stroke protocol. The exam was completed at [facility] on 01/15/2021 4:40 PM. The exam was reviewed at 4:43 PM and ER physician was notified at 4:46 PM. - Medical Decision Making 40-year-old female with history of seizure disorder on antiepileptics presenting due to persistent and worsening headache since her last known seizure on January 09. Also reports lightheadedness. The beginning of the patient encounter began with a nurse came to get me saying that he found the patient drooling and unresponsive in the room and thought she may be having a seizure. When I entered the room the patient was somnolent but arousable and able to answer my questions. She did appear to be postictal. Her neck was supple and had full range of motion. However, it quickly became apparent that she was hemiparetic with extreme weakness of her right upper and right lower extremities as well as right-sided facial droop without involvement of the upper part of the face. In addition, she was noted to have decreased sensation to touch and pain on the right side. NIHSS is 5. For this reason stroke alert was initiated with full set of labs and Noncon CT of the head as well as CT angio of the head and neck. I spoke with the PAJohanna he stated that when the patient first came in was screened at 1610 she did not have any of these neurologic deficits therefore last known normal time is 1610 today. At 5:45 PM I spoke over the phone with Dr. Sharp of teleneurology. He has seen and assessed the patient. He feels that the patient's current symptoms/deficits are likely related to her having a seizure while here in the emergency department, even with her sensory involvement. He reviewed the CT of the head and it shows no evidence of bleeding or acute/subacute ischemia (co nfirmed by radiologist). He does not recommend aspirin or admission but instead recommends administration of 200 mg of IV Vimpat now. He says that if the patient feels better and her deficits resolve, she should be discharged home with an increased Vimpat dose of 150 mg twice daily in addition to her Keppra and Lamictal. On repeat assessment at 5:50 PM, the patient's symptoms are improved, and she has 4 out of 5 strength on the right. On repeat assessment again at 6:30 PM, the patient's neurologic deficits have entirely resolved. She has no unilateral weakness or numbness. She does still have a headache for which we will administer Toradol and IV fluids in addition to the Vimpat as recommended by the teleneurologist. Labs have resulted and reveal no significant leukocytosis or anemia. There are no significant electrolyte abnormalities and kidney function is normal. The remainder of the labs are unremarkable. On repeat assessment again at 8:10 PM, the patient is resting comfortably in the bed. She reports that she feels much better. Her headache is improved greatly. She has no neurologic deficits. She wants to go home. I discussed with her the medication changes recommended by the teleneurologist, namely increasing the dose of her Vimpat to 150 mg twice a day. She will follow up with her neurologist and regular doctor within the next 24 hours. She will return to the emergency department should she develop significantly worsening pain, new neurologic deficits, or any other new concerns. All this was discussed with the patient who expressed understanding agreement with the plan of care. Critical Care Time: Yes (35 mins) Critical care time in (mins) excluding proc time.: 35 Critical care attestation.: If time is entered above; I have spent that time in minutes in the direct care of this critically ill patient, excluding procedure time. Critical care time was spent in the evaluation/assessment and management of critical seizure with neurologic symptoms requiring stroke alert and coordination between specialists and frequent reassessment and close monitoring ED Disposition Clinical Impression: Seizure, Headache, Rk's paralysis Disposition: DC-01 TO HOME OR SELFCARE Is pt being admited?: No Condition: Stable Instructions: Non-Epileptic Seizures, Adult, Seizure, Adult Additional Instructions: Please return to the emergency department should you develop greatly worsening symptoms, fever, new neurologic symptoms, or any other new concerns. Follow-up with your neurologist within the next 24 hours. Please schedule a follow-up appointment with your regular doctor as well. Prescriptions: Lacosamide [Vimpat] 150 mg PO BID #60 tablet Referrals: PRIMARY CARE, [Primary Care Provider] - 3-5 Days
--- NOTE | 2021-01-15 17:45 | Consultation ---
Medications and Allergies Allergies Allergy/AdvReac Type Severity Reaction Status Date / Time No Known Allergies Allergy Verified 01/09/21 14:39 Home Medications Medication Instructions Recorded Confirmed Last Taken Type Lacosamide [Vimpat] 100 mg PO BID 30 Days #60 01/08/20 01/09/21 01/08/21 Rx lamoTRIgine [LaMICtal] 100 mg PO BID #60 tablet 01/08/20 01/09/21 01/08/21 Rx levETIRAcetam [Keppra TAB] 2,000 mg PO BID #60 tab 01/08/20 01/09/21 01/08/21 Rx Famotidine [Pepcid] 20 mg PO QDAY PRN 01/09/21 01/09/21 3 Months Ago History ~10/09/20 Physical Examination - Vital Signs Vital Signs: Vital Signs Temp Pulse Resp BP Pulse Ox 98.2 F 80 20 149/97 98 01/15/21 16:06 01/15/21 16:06 01/15/21 16:06 01/15/21 16:06 01/15/21 16:06 Results - Laboratory Findings CBC and BMP: 01/15/21 16:15 01/15/21 16:15 Abnormal Lab Findings: Abnormal Labs 01/15/21 16:15 MCV 77 L MCH 25 L Lymph % (Auto) 40.2 H [place] % (Auto) 9.7 H [place] # (Auto) 0.9 H Assessment and Plan [facility] Consult Note # Demographics Consult Type: Acute Stroke Level 1 (0-4.5 hrs) Patient Location: Emergency Room First Name: Alicia Last Name: Bassam Date of : 1980 Age: 40 Gender: Female Time of Initial Page (Eastern Time): 01/15/2021, 17:29 Time of Return Call ( Time): 01/15/2021, 17:30 # HPI History: 40F with possible seizure, foaming at mouth, not responsive per RN. Initially in ED due to hypertension and headache reportedly. Last well seen here for seizure reportedly. [place] to have right weakness and so stroke alert activated. Patient reports feeling tired. Does feel similar to after seizures. Denies missed doses medication. # Scores Time of exam and NIHSS ( Time): 01/15/2021, 17:39 Level of Consciousness 1a: [1] = Not alert; but arousable by minor stim LOC Questions 1b: [0] = Answers both questions correctly LOC Commands 1c: [0] = Performs both tasks correctly Best Gaze 2: [0] = Normal Visual 3: [0] = No visual loss Facial Palsy 4: [0] = Normal symmetrical movements Motor Arm Left 5a: [0] = No drift Motor Arm Right 5b: [0] = No drift Motor Leg Left 6a: [0] = No drift Motor Leg Right 6b: [0] = No drift Limb Ataxia 7: [0] = Absent Sensory 8: [1] = Qzoy-pw-iilsarmc sensory loss Best Language 9: [0] = No aphasia Dysarthria 10: [0] = Normal Extinction and Inattention 11: [0] = No abnormality NIHSS Total: 2 # PMH-FH-SH Past Medical History: seizure Medications: vimpat, lamotrigine, keppra # Data Time Head CT personally read by me (Eastern Time): 01/15/2021, 17:[address]: no bleed preliminarily reviewed by me, please refer to radiology read for official reading # Assessment Impression: Altered Mental Status Seizure with prior recent seizure. The right side weakness could be due to post-ictal "Rk's" paralysis, r/o other. # Plan Thrombolytic/Intervention: NOT IV Thrombolytic or IA Intervention Thrombolytic Exclusion: risk > benefit with available data Intraarterial Exclusion: clinically not consistent with stroke Blood Pressure Management: nicardipine labetolol Target Blood Pressure: SBP < 160 Other: seizure precautions I have discussed my recommendations with the referring provider Additional Recommendations: Continue baseline antiepileptic medications, but increase vimpat to 150mg PO BID. Could give vimpat 200mg IV once now. Outpatient neurology follow-up. If recurrent event patient should be observed and in that case would obtain EEG. Disposition: observation # Logistics Telemedicine: Interactive 2 way audio and visual telecommunication technology was utilized during this visit
--- NOTE | 2021-01-15 17:52 | Cat Scan Report ---
NONENHANCED CT SCAN OF THE BRAIN: INDICATION: CODE STROKE [id number] RT SIDE WEAKNESS,. TECHNIQUE: Routine CT head without contrast. Sagittal and coronal reformatted images were obtained. A ll CT scans at this location are performed using CT dose reduction for ALARA by means of automated ex posure control. COMPARISON: None. FINDINGS: BRAIN / INTRACRANIAL CONTENTS: Hemorrhage: No intracranial hemorrhage; no subarachnoid hemorrhage Stroke mimics: No subdural or epidural hematoma or space taking lesion Acute/subacute territorial infarction: Alvarez-white matter interface: No blurring; normal Insular cortex: Normal Basal ganglia: Normal Wedge shaped parenchymal low density area: Not present Cortical sulci: Not effaced Lacunar infarctions: No acute/subacute lacunae Vasculopathy: Dense middle cerebral artery sign: Not present Internal carotid artery terminus: Normal Basilar artery:Normal Middle cerebral artery branches in the sylvian fissure (Dot sign): Normal Calcified embolus: Not present ASPECT score: 10 Chronic lesions: None White matter: Periventricular and deep hemispheric white matter are normal Craniocervical junction:No significant abnormality Orbits: No significant abnormality Paranasal sinuses/mastoids:No significant abnormality Additional findings: None IMPRESSION: No intracerebral hemorrhage or stroke mimics; no CT findings to suggest acute/subacute territorial is chemia This exam was performed as part of a code stroke protocol. The exam was completed at [facility] on 01/15/2021 4:40 PM. The exam was reviewed at 4:43 PM and ER physician was notified at 4:46 PM. Signer Name: Karel Dennison MD Signed: 01/15/2021 5:47 PM Workstation Name: [employer], [place]
[2021-01-15 17:54] LABS: Basophils # (Auto) 0.1 K/mm3 (0.0-0.1); Eosinophils # (Auto) 0.2 K/mm3 (0.0-0.4); Eosinophils % (Auto) 2.1 % (0.0-4.3); Hematocrit 40.7 % (30.3-42.9); Hemoglobin 13.1 gm/dl (10.1-14.3); Lymphocytes # (Auto) 4.4 K/mm3 (1.2-5.4); Lymphocytes % (Auto) 43.2 % (13.4-35.0); Mean Corpuscular HGB Conc 32 % (30-34); Mean Corpuscular Volume 79 fl (79-97); Platelet Count 359 K/mm3 (140-440); Red Blood Count 5.15 M/mm3 (3.65-5.03); Red Cell Distribution Width 14.8 % (13.2-15.2)
[2021-01-15] MEDS ORDERED: LACOSAMIDE 200 MG in SODIUM CHLORIDE 0.9% 100 ML IV ONE (18:00)
[2021-01-15 18:09] LABS: INR 1.05 (0.87-1.13); Partial Thromboplastin Time 22.3 Sec. (24.2-36.6); Thrombin Time 15.2 Sec. (15.1-19.6)
[2021-01-15 18:12] LABS: Creatine Kinase MB 1.3 ng/mL (0.0-4.0)
[2021-01-15] MEDS: SODIUM CHLORIDE 0.9% 1000 ML 1,000 ML IV ONE ×2 (18:23→18:26)
[2021-01-15] MEDS ORDERED: KETOROLAC 30 MG/1 ML INJ IV ONE (18:31)
[2021-01-15 20:52] VITALS: BP 152/87
--- NOTE | 2021-01-16 18:07 | Electrocardiograph Report ---
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
== END 2021-01-15 20:52 | disposition home or self-care (01) ==
LOC: ED 15:55
DX: G83.84 Todd's paralysis (postepileptic) (principal); R51.9 Headache, unspecified; R56.9 Unspecified convulsions; F41.9 Anxiety disorder, unspecified; F17.200 Nicotine dependence, unspecified, uncomplicated; F12.10 Cannabis abuse, uncomplicated; Z98.890 Other specified postprocedural states; Z79.899 Other long term (current) drug therapy
CPT/HCPCS: 36415; 70450; 80053; 82550; 82553; 82962; 83735; 84100; 84484; 84703; 85025; 85610; 85670; 85730; 93005; 96365; 96375; 99284; C9254; J1885; J7030

== ENCOUNTER 2021-01-16 14:54 | Emergency (ER) | payer BC ==
[2021-01-16] MEDS ORDERED: levETIRAcetam 1000 MG/NS 0.75% 1,000 MG/100 ML BAG IV ONE (15:02)
[2021-01-16 15:05] VITALS: BP 155/90
--- NOTE | 2021-01-16 15:09 | Emergency Department Report ---
ED Seizure HPI - General Chief Complaint: Seizure Stated Complaint: GENERAL WEAKNESS Time Seen by Provider: 01/16/21 15:02 Source: patient, EMS, old records reviewed Mode of arrival: Stretcher Limitations: No Limitations - History of Present Illness Initial Comments: Chief complaint: Fall, seizure HPI: Is a 40-year-old female with history of seizure, hypertension, elevated BMI marijuana dependence, pulmonary embolism, DVT, Rk's paralysis who presents with fall. Patient recently evaluated at this hospital yesterday for seizure and hypertension. Today she had a fall. She fell backwards in her driveway. She struck her head. No loss of consciousness. Witnessed by her boyfriend. She did not have witnessed seizure. Patient's had epilepsy since 2016. On yesterday her medication Vimpat was increased from 100 mg p.o. twice daily to 200 mg twice daily. Patient also takes Lamictal 100 mg twice daily. She also takes Keppra 2000 mg p.o. twice daily. She is followed by PCP in [place]. She also is followed by neurologist. Patient has severe posterior headache. She denies neck pain. She smokes marijuana daily. She states her marijuana use decreases the frequency of her headaches. 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 Complaint: seizure -: Sudden, This afternoon Description of Episode: loss of consciousness, tonic-clonic movement Witnessed:: Yes Trauma: Yes Seizure History: known seizure disorder Place: home Possible Precipitating Event: head injury Associated Symptoms: denies other symptoms - Related Data Home Medications Medication Instructions Recorded Confirmed Last Taken Famotidine [Pepcid] 20 mg PO QDAY PRN 01/09/21 01/09/21 3 Months Ago ~10/09/20 Previous Rx's Medication Instructions Recorded Last Taken Type lamoTRIgine [LaMICtal] 100 mg PO BID #60 tablet 01/08/20 01/08/21 Rx levETIRAcetam [Keppra TAB] 2,000 mg PO BID #60 tab 01/08/20 01/08/21 Rx Lacosamide [Vimpat] 150 mg PO BID #60 tablet 01/15/21 Unknown Rx Allergies Allergy/AdvReac Type Severity Reaction Status Date / Time No Known Allergies Allergy Verified 01/16/21 15:05 ED Review of Systems ROS: Stated complaint: GENERAL WEAKNESS Other details as noted in HPI Comment: All other systems reviewed and negative Constitutional: denies: fever, malaise ENT: epistaxis Respiratory: denies: cough, shortness of breath Cardiovascular: denies: chest pain Gastrointestinal: denies: abdominal pain, nausea, vomiting Neurological: headache. denies: numbness, paresthesias, confusion ED Past Medical Hx - Past Medical History Previous Medical History?: Yes Hx Hypertension: Yes Hx Deep Vein Thrombosis: Yes Hx Pulmonary Embolism: Yes Hx Seizures: Yes Hx Psychiatric Treatment: Yes (anxiety) - Surgical History Past Surgical History?: Yes Additional Surgical History: breast reduction/ c section - Social History Smoking Status: Never Smoker Substance Use Type: Marijuana - Medications Home Medications: Home Medications Medication Instructions Recorded Confirmed Last Taken Type lamoTRIgine [LaMICtal] 100 mg PO BID #60 tablet 01/08/20 01/09/21 01/08/21 Rx levETIRAcetam [Keppra TAB] 2,000 mg PO BID #60 tab 01/08/20 01/09/21 01/08/21 Rx Famotidine [Pepcid] 20 mg PO QDAY PRN 01/09/21 01/09/21 3 Months Ago History ~10/09/20 Lacosamide [Vimpat] 150 mg PO BID #60 tablet 01/15/21 Unknown Rx ED Physical Exam - General Limitations: No Limitations General appearance: alert, in no apparent distress - Head Head exam: Present: atraumatic, normocephalic, normal inspection (Unable to palpate or visualize scalp hematoma) - Eye Eye exam: Present: normal appearance - ENT ENT exam: Present: mucous membranes moist - Neck Neck exam: Present: normal inspection, full ROM - Respiratory Respiratory exam: Present: normal lung sounds bilaterally. Absent: respiratory distress, wheezes, rales, rhonchi - Cardiovascular Cardiovascular Exam: Present: regular rate, normal rhythm, normal heart sounds. Absent: systolic murmur, diastolic murmur, rubs, gallop - GI/Abdominal GI/Abdominal exam: Present: soft, normal bowel sounds. Absent: distended, tenderness, guarding, rebound - Extremities Exam Extremities exam: Present: normal inspection - Neurological Exam Neurological exam: Present: alert, oriented X3 - Psychiatric Psychiatric exam: Present: normal affect, normal mood - Skin Skin exam: Present: warm, dry, intact, normal color. Absent: rash ED Course Vital Signs 01/16/21 15:00 Temperature 98.4 F Pulse Rate 93 H Respiratory 18 Rate Blood Pressure 155/90 O2 Sat by Pulse 100 Oximetry ED Medical Decision Making - Radiology Data Radiology results: report reviewed Patient Name: DREAD AVILEZ Gender: Female Date of : 1980 Referring Provider: LEILANI PRADO Organization: [facility] Accession Number: [id number] Requested Date: January 16, 2021 15:02 Report Status: Final Requested Procedure: 1 Procedure Description: CT head/brain wo con Modality: CT Findings Reporting MD: Yayo Aviles Dictation Time: January 16, 2021 14:38 Shirring Machine Operator Automatic: Not available Housekeeping Coordinator Date: CT head/brain wo con INDICATION / CLINICAL INFORMATION: 40 years Female; fall headache. TECHNIQUE: Routine CT head without contrast. All CT scans at this location are performed using CT dose reduction for ALARA by means of automated exposure control. COMPARISON: None. FINDINGS: BRAIN / INTRACRANIAL CONTENTS: No acute hemorrhage, mass effect, midline shift, hydrocephalus, or acute, large territorial infarct. No signs of significant atrophy or chronic infarct. No significant white matter abnormality seen. CRANIOCERVICAL JUNCTION: No significant abnormality. ORBITS: No significant abnormality of visualized orbits. SINUSES / MASTOIDS: Visualized paranasal sinuses and mastoid air cells are essentially clear. ADDITIONAL FINDINGS: None. IMPRESSION: 1. No focal mass, hemorrhage, hydrocephalus, or acute, large territorial infarct. Signer Name: Yayo Aviles MD, III Signed: 01/16/2021 2:38 PM Workstation Name: [id number] - Medical Decision Making 1. fall, closed head injury: CT head indicated due to possible LOC. 2. seizure after fall: IV keppra load provided Patient observed in ED without recurrence of seizure or decreased LOC Encouraged to cease from marijuana use for the next 3 weeks. Also encouraged telehealth consultation with personal neurologist Critical care attestation.: If time is entered above; I have spent that time in minutes in the direct care of this critically ill patient, excluding procedure time. ED Disposition Clinical Impression: Seizure, Closed head injury, Fall Disposition: DC-01 TO HOME OR SELFCARE Is pt being admited?: No Does the pt Need Aspirin: No Condition: Stable Instructions: Seizure, Adult
--- NOTE | 2021-01-16 15:42 | Cat Scan Report ---
CT head/brain wo con INDICATION / CLINICAL INFORMATION: 40 years Female; fall headache. TECHNIQUE: Routine CT head without contrast. All CT scans at this location are performed using CT dos e reduction for ALARA by means of automated exposure control. COMPARISON: None. FINDINGS: BRAIN / INTRACRANIAL CONTENTS: No acute hemorrhage, mass effect, midline shift, hydrocephalus, or acu te, large territorial infarct. No signs of significant atrophy or chronic infarct. No significant whi te matter abnormality seen. CRANIOCERVICAL JUNCTION: No significant abnormality. ORBITS: No significant abnormality of visualized orbits. SINUSES / MASTOIDS: Visualized paranasal sinuses and mastoid air cells are essentially clear. ADDITIONAL FINDINGS: None. IMPRESSION: 1. No focal mass, hemorrhage, hydrocephalus, or acute, large territorial infarct. Signer Name: Yayo Aviles MD, III Signed: 01/16/2021 3:38 PM Workstation Name: [id number]
[2021-01-16] MEDS ORDERED: MORPHINE 4 MG/1 ML INJ IV ONE (16:08)
[2021-01-16] MEDS ORDERED: HYDROcodone/ACETAMINOPHEN 5-325 MG TAB PO ONE (16:08)
[2021-01-16] MEDS ORDERED: IBUPROFEN 800 MG TAB PO ONE (16:08)
[2021-01-16] MEDS ORDERED: ONDANSETRON 4 MG/2 ML INJ IV ONE (16:08)
== END 2021-01-16 17:42 | disposition home or self-care (01) ==
LOC: ED 14:54
DX: S09.90XA Unspecified injury of head, initial encounter (principal); G40.909 Epilepsy, unspecified, not intractable, without status epilepticus; I10 Essential (primary) hypertension; F41.9 Anxiety disorder, unspecified; F12.90 Cannabis use, unspecified, uncomplicated; Z98.890 Other specified postprocedural states; Z79.899 Other long term (current) drug therapy; W18.30XA Fall on same level, unspecified, initial encounter; Y93.89 Activity, other specified; Y92.89 Other specified places as the place of occurrence of the external cause; Y99.8 Other external cause status
CPT/HCPCS: 70450; 96374; 96375; 99284; J1953; J2270; J2405

== ENCOUNTER 2021-08-04 23:41 | Emergency (ER) | payer BC ==
[2021-08-04] MEDS ORDERED: HYDROcodone/ACETAMINOPHEN 5-325 MG TAB PO ONE (23:46)
--- NOTE | 2021-08-04 23:52 | Emergency Department Report ---
ED General Adult HPI - General Stated complaint: fall injury Time Seen by Provider: 08/04/21 23:45 - History of Present Illness Initial comments: Patient 41-year-old female with history of obesity who presents for left lateral rib pain status post fall down 4 steps at home. There is no LOC patient was immediately amatory after fall now complains of 6/10 left rib pain. Pain is exacerbated by breathing and movement. There is no wheezing or stridor. There is no obvious deformity no swelling, patient arrived to ED via POV and family member patient is ambulatory however ambulation does not exacerbate pain. - Related Data Home Medications Medication Instructions Recorded Confirmed Last Taken Famotidine [Pepcid] 20 mg PO QDAY PRN 01/09/21 01/09/21 3 Months Ago ~10/09/20 Previous Rx's Medication Instructions Recorded Last Taken Type lamoTRIgine [LaMICtal] 100 mg PO BID #60 tablet 01/08/20 01/08/21 Rx levETIRAcetam [Keppra TAB] 2,000 mg PO BID #60 tab 01/08/20 01/08/21 Rx Lacosamide [Vimpat] 150 mg PO BID #60 tablet 01/15/21 Unknown Rx Acetaminophen/Codeine [Tylenol 1 tab PO Q6H PRN #12 tab 08/05/21 Unknown Rx /Codeine # 3 tab] Ibuprofen [Motrin 800 MG tab] 800 mg PO Q8HR PRN #30 tablet 08/05/21 Unknown Rx Allergies Allergy/AdvReac Type Severity Reaction Status Date / Time No Known Allergies Allergy Verified 01/29/21 09:56 ED Review of Systems ROS: Stated complaint: fall injury Other details as noted in HPI Constitutional: denies: chills, fever Eyes: denies: eye pain, eye discharge, vision change ENT: denies: ear pain, throat pain Respiratory: denies: cough, shortness of breath, wheezing Cardiovascular: chest pain (left lateral chest wall pain ). denies: palpitations Endocrine: no symptoms reported Gastrointestinal: denies: abdominal pain, nausea, vomiting, diarrhea Genitourinary: denies: urgency, dysuria, discharge Musculoskeletal: denies: back pain, joint swelling, arthralgia Skin: denies: rash, lesions Neurological: denies: headache, weakness, paresthesias Psychiatric: denies: anxiety, depression Hematological/Lymphatic: denies: easy bleeding, easy bruising ED Past Medical Hx - Past Medical History Hx Hypertension: Yes Hx Deep Vein Thrombosis: Yes Hx Pulmonary Embolism: Yes Hx Seizures: Yes Hx Psychiatric Treatment: Yes (anxiety) - Surgical History Additional Surgical History: breast reduction/ c section - Social History Smoking Status: Never Smoker Substance Use Type: Marijuana - Medications Home Medications: Home Medications Medication Instructions Recorded Confirmed Last Taken Type lamoTRIgine [LaMICtal] 100 mg PO BID #60 tablet 01/08/20 01/09/21 01/08/21 Rx levETIRAcetam [Keppra TAB] 2,000 mg PO BID #60 tab 01/08/20 01/09/21 01/08/21 Rx Famotidine [Pepcid] 20 mg PO QDAY PRN 01/09/21 01/09/21 3 Months Ago History ~10/09/20 Lacosamide [Vimpat] 150 mg PO BID #60 tablet 01/15/21 Unknown Rx Acetaminophen/Codeine [Tylenol 1 tab PO Q6H PRN #12 tab 08/05/21 Unknown Rx /Codeine # 3 tab] Ibuprofen [Motrin 800 MG tab] 800 mg PO Q8HR PRN #30 tablet 08/05/21 Unknown Rx ED Physical Exam - General General appearance: alert, in no apparent distress - Head Head exam: Present: normocephalic, normal inspection - Eye Eye exam: Present: normal appearance, PERRL, EOMI. Absent: nystagmus Pupils: Present: normal accommodation - ENT ENT exam: Present: mucous membranes moist - Neck Neck exam: Present: normal inspection, full ROM. Absent: tenderness - Expanded Neck Exam Expanded Neck exam: Absent: midline deformity, anterior neck swelling, tracheal deviation - Respiratory Respiratory exam: Present: normal lung sounds bilaterally, chest wall tenderness (left lateral rib pain to palpation no crepitus, no ecchymosis, lung sounds are clear bilat ). Absent: respiratory distress, wheezes, stridor - Cardiovascular Cardiovascular Exam: Present: regular rate, normal rhythm. Absent: systolic murmur, diastolic murmur, rubs, gallop - GI/Abdominal GI/Abdominal exam: Present: soft, normal bowel sounds. Absent: distended, tenderness, guarding, rebound, rigid, bruit, hernia - Rectal Rectal exam: Present: deferred - Extremities Exam Extremities exam: Present: normal inspection, full ROM, normal capillary refill - Back Exam Back exam: Present: normal inspection, full ROM, tenderness, CVA tenderness (L). Absent: CVA tenderness (R) - Neurological Exam Neurological exam: Present: alert, oriented X3, CN II-XII intact, normal gait. Absent: motor sensory deficit - Expanded Neurological Exam Expanded Patient oriented to: Present: person, place, time Speech: Present: fluid speech Motor strength exam: RUE: 5, LUE: 5, RLE: 5, LLE: 5 Best Eye Response ([place]): (4) open spontaneously Best Motor Response ([place]): (6) obeys commands Best Verbal Response ([place]): (5) oriented [place] Total: 15 - Psychiatric Psychiatric exam: Present: normal affect, normal mood - Skin Skin exam: Present: warm, dry, intact, normal color. Absent: rash ED Course Vital Signs 08/04/21 23:41 Temperature 98.9 F Pulse Rate 89 Respiratory 18 Rate Blood Pressure 144/78 [Right] O2 Sat by Pulse 98 Oximetry ED Medical Decision Making - Radiology Data Radiology results: report reviewed, image reviewed Fluoro Time In Minutes: Rib series-3 views including a PA chest INDICATION: fall left rib pain. COMPARISON: Chest x-ray from 01/12/2020 IMPRESSION: No acute osseous abnormality. Normal alignment. Clear lungs with normal heart size. Signer Name: Rickey Aponte MD Signed: 08/05/2021 12:20 AM Workstation Name: [id number] Transcribed By: JW Dictated By: Rickey Aponte MD Electronically Authenticated By: Rickey Aponte MD Signed Date/Time: 08/05/21 0020 - Medical Decision Making Rib x-rays normal no fracture no soft tissue abnormality, This is a fall with chest wall strain. NSAIDs as needed, follow-up primary care doctor in 2 to 3 days. Patient verbalized agreement and understanding with discharge plan. Patient DC'd home in stable condition at this time. Critical care attestation.: If time is entered above; I have spent that time in minutes in the direct care of this critically ill patient, excluding procedure time. ED Disposition Clinical Impression: Fall Qualifiers: Encounter type: initial encounter Qualified Code(s): W19.XXXA - Unspecified fall, initial encounter Chest wall contusion Qualifiers: Encounter type: initial encounter Laterality: left Qualified Code(s): S20.212A - Contusion of left front wall of thorax, initial encounter Disposition: HOME / SELF CARE / HOMELESS Is pt being admited?: No Does the pt Need Aspirin: No Condition: Stable Instructions: Rib Contusion Additional Instructions: Medications as prescribed, follow-up with your doctor in 2 to 3 days. Turn to emergency if symptoms worsen. Prescriptions: Ibuprofen [Motrin 800 MG tab] 800 mg PO Q8HR PRN #30 tablet PRN Reason: pain Acetaminophen/Codeine [Tylenol /Codeine # 3 tab] 1 tab PO Q6H PRN #12 tab PRN Reason: pain Referrals: MEIR ASTUDILLO MD [Staff Physician] - 3-5 Days Forms: Work/School Release Form(ED) Time of Disposition: 01:14
--- NOTE | 2021-08-05 00:25 | XRay Report ---
Rib series-3 views including a PA chest INDICATION: fall left rib pain. COMPARISON: Chest x-ray from 01/12/2020 IMPRESSION: No acute osseous abnormality. Normal alignment. Clear lungs with normal heart size. Signer Name: Rickey Aponte MD Signed: 08/05/2021 12:20 AM Workstation Name: [id number]
[2021-08-05 02:29] VITALS: BP 136/87
== END 2021-08-05 02:29 | disposition home or self-care (01) ==
LOC: ED 23:41
DX: S20.219A Contusion of unspecified front wall of thorax, initial encounter (principal); W19.XXXA Unspecified fall, initial encounter; I10 Essential (primary) hypertension; F10.20 Alcohol dependence, uncomplicated; Y93.89 Activity, other specified; Y92.89 Other specified places as the place of occurrence of the external cause; Y99.8 Other external cause status
CPT/HCPCS: 99283